=== PATIENT | female | born 1990 | race Caucasian/White ===

== ENCOUNTER 2016-09-12 10:46 | Emergency (ER) | payer SELFPAY ==
--- NOTE | 2016-09-12 12:08 | EDM.PDOC ---
ED HPI GENERAL MEDICAL PROBLEM - General Chief Complaint: Neck Problem Stated Complaint: [id number] SEVERE NECK PAIN PNEMONIA INCONTENCE SO Time Seen by Provider: 09/12/16 11:55 Source of Information: Reports: Patient History Limitations: Reports: No limitations - History of Present Illness INITIAL COMMENTS - FREE TEXT/NARRATIVE: This 26 yo female patient reports to the ED with numerous complaints. The patient reports: 1) right sided neck pain (started on 08/19/16), 2) a sore throat (also started on 08/19/16), 3) a cough (started about the same time), 4) generalized abdominal pain (history of endometriosis and colitis), and 5) loss of bowel control (acute on chronic). The patient was seen in the [facility] on 09/09/16 and was started on Augmentin (may contribute to the bowel incontinence). 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) Right Neck Pain Score (Numeric/FACES): 8 Right Lower Back Pain Score (Numeric/FACES): 8 Middle Abdomen Pain Score (Numeric/FACES): 8 - Related Data Allergies Allergy/AdvReac Type Severity Reaction Status Date / Time Cephalosporins Allergy Hives Verified 11/22/15 09:16 fentanyl Allergy Hives Verified 11/22/15 09:16 ketamine Allergy Hives Verified 11/22/15 09:16 propofol Allergy Hives Verified 11/22/15 09:16 antiinflammatories Allergy Cannot Uncoded 11/22/15 09:16 Remember Home Meds: Home Meds ALPRAZolam [Alprazolam] 1 mg PO ASDIRECTED PRN 08/02/15 [History] Amoxicillin/Potassium Clav [Augmentin 875-125 Tablet] 1 tab PO ASDIRECTED [History] Escitalopram [Lexapro] 20 mg PO DAILY 09/12/16 [History] Hydrocodone/Acetaminophen [Hydrocodon-Acetaminophen 5-325] 1 - 2 tab PO ASDIRECTED PRN 09/12/16 [History] Past Medical History - Past Health History Medical/Surgical History: Denies Medical/Surgical History HEENT History: Reports: None Cardiovascular History: Reports: None Respiratory History: Reports: None Gastrointestinal History: Reports: Other (see below) Other Gastrointestinal History: colitis 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 Musculoskeletal History: Reports: None Neurological History: Reports: None Psychiatric History: Reports: Anxiety, Depression, Other (see below) Other Psychiatric History: OCPD Endocrine/Metabolic History: Reports: None, Obesity/BMI 30+ Hematologic History: Reports: None Immunologic History: Reports: None Oncologic (Cancer) History: Reports: None Dermatologic History: Reports: None - Infectious Disease History Infectious Disease History: Reports: Chicken pox - Past Surgical History Head Surgeries/Procedures: Reports: None GI Surgical History: Reports: Colonoscopy Female Surgical History: Reports: Endometrial ablation Social & Family History - Family History Family Medical History: Noncontributory - Tobacco Use Smoking Status *Q: Current Every Day Smoker Years of Tobacco use: 7 Packs/Tins Daily: 1 Second Hand Smoke Exposure: No - Caffeine Use Caffeine Use: Reports: Coffee, Energy drinks, Soda - Recreational Drug Use Recreational Drug Use: No - Living Situation & Occupation Living situation: Reports: with family Occupation: employed ED ROS GENERAL - Review of Systems Review Of Systems: ROS reveals no pertinent complaints other than HPI. ED EXAM, GENERAL - Physical Exam Exam: See Below Exam Limited By: No limitations General Appearance: alert, WD/WN, moderate distress Eye Exam: bilateral eye: EOMI, normal inspection, PERRL Ears: normal external exam, normal canal, hearing grossly normal, normal TMs Nose: normal inspection Throat/Mouth: Normal inspection, Normal lips, Normal teeth, Normal gums, Normal oropharynx, Normal voice, No airway compromise Head: atraumatic, normocephalic Neck: tender lateral (right lateral posterior neck pain) Respiratory/Chest: no respiratory distress, lungs clear, normal breath sounds, no accessory muscle use, chest non-tender Cardiovascular: normal peripheral pulses, regular rate, rhythm, no edema, no gallop, no JVD, no murmur, no rub GI/Abdominal: normal bowel sounds, soft, no organomegaly, no distention, no abnormal bruit, no mass, tender (diffuse) (Female) Exam: Deferred Rectal (Female) Exam: Deferred Back Exam: normal inspection, decreased range of motion (mostly in the right posterior neck), muscle spasm, paraspinal tenderness Extremities: normal inspection, normal range of motion, non-tender, normal capillary refill, no pedal edema Neurological: alert, oriented, CN II-XII intact, normal cognition, normal gait, no motor/sensory deficits Psychiatric: normal affect, normal mood Skin Exam: Warm, Dry, Intact, Normal color, No rash Lymphatic: no adenopathy Course - Vital Signs Last Recorded V/S: Last Vital Signs Temp 36.2 C 09/12/16 13:59 Pulse 73 09/12/16 13:59 Resp 18 09/12/16 13:59 BP 108/68 09/12/16 13:59 Pulse Ox 98 09/12/16 13:59 - Orders/Labs/Meds Orders: Active Orders 24 hr Category Date Time Status CULTURE BLOOD [BC] Stat Lab 09/12/16 11:50 Received CULTURE BLOOD [] Stat Lab 09/12/16 12:03 Received CULTURE STREP A CONFIRMATION [] Stat Lab 09/12/16 11:26 Results STREP SCRN A RAPID W CULT CONF [] Stat Lab 09/12/16 11:26 Results Blood Culture x2 Reflex Set [OM.PC] Stat Oth 09/12/16 11:36 Ordered Labs: Laboratory Tests 09/12/16 09/12/16 09/12/16 Range/Units 11:10 11:10 11:50 WBC 9.1 (5.0-10.0) 10^3/uL RBC 5.12 (4.2-5.4) 10^6/uL Hgb 16.2 H (12.0-16.0) g/dL Hct 44.3 (37.0-47.0) % MCV 86.5 (80-100) fL MCH 31.6 (27.0-34.0) pg MCHC 36.6 H (33.0-35.0) g/dL Plt Count 344 (150-450) 10^3/uL Neut % (Auto) 64.0 (42.2-75.2) % Lymph % (Auto) 27.5 (20.5-50.1) % [place] % (Auto) 7.0 (2-8) % Eos % (Auto) 1.2 (1.0-3.0) % Baso % (Auto) 0.3 (0.0-1.0) % Sodium (138-146) mmol/L Potassium (3.5-4.9) mmol/L Chloride (98-109) mmol/L Carbon Dioxide (24-29) mmol/L Anion Gap BUN (8-26) mg/dL Creatinine (0.6-1.3) mg/dL Est Cr Clr Drug Dosing mL/min Estimated GFR (MDRD) BUN/Creatinine Ratio Glucose (70-105) mg/dL Lactic Acid (0.5-2.2) mmol/L Calcium Magnesium (1.8-2.5) mg/dL Total Bilirubin (0.2-1.0) mg/dL AST (10-42) IU/L ALT (10-60) IU/L Alkaline Phosphatase (42-121) IU/L Ammonia (11-35) umol/L Total Protein (6.7-8.2) g/dl Albumin (3.2-5.5) g/dl Globulin Albumin/Globulin Ratio Amylase (28-100) U/L Lipase (22-51) U/L HCG, Qual Urine Color Yellow (YELLOW) Urine Appearance Slightly cloudy (CLEAR) Urine pH 5.0 (5.0-9.0) Ur Specific [place] <= 1.005 (1.005-1.030) Urine Protein Negative (NEGATIVE) Urine Glucose (UA) Negative (NEGATIVE) Urine Ketones Negative (NEGATIVE) Urine Occult Blood Large H (NEGATIVE) Urine Nitrite Negative (NEGATIVE) Urine Bilirubin Negative (NEGATIVE) Urine Urobilinogen 0.2 (0.2-1.0) mg/dL Ur Leukocyte Esterase Trace H (NEGATIVE) Urine RBC 0-5 /HPF Urine WBC 0-5 (0-5/HPF) /HPF Ur Epithelial Cells Few /HPF Urinalysis Comment Urine Opiates Screen Negative (NEGATIVE) Ur Oxycodone Screen Negative (NEGATIVE) Urine Methadone Screen Negative (NEGATIVE) Ur Barbiturates Screen Negative (NEGATIVE) U Tricyclic Antidepress Negative (NEGATIVE) Ur Phencyclidine Scrn Negative (NEGATIVE) Ur Amphetamine Screen Negative (NEGATIVE) U Methamphetamines Scrn Negative (NEGATIVE) Urine MDMA Screen Negative (NEGATIVE) U Benzodiazepines Scrn Positive H (NEGATIVE) Urine Cocaine Screen Negative (NEGATIVE) U Marijuana (THC) Screen Negative (NEGATIVE) 09/12/16 09/12/16 09/12/16 Range/Units 11:50 11:50 11:50 WBC (5.0-10.0) 10^3/uL RBC (4.2-5.4) 10^6/uL Hgb (12.0-16.0) g/dL Hct (37.0-47.0) % MCV (80-100) fL MCH (27.0-34.0) pg MCHC (33.0-35.0) g/dL Plt Count (150-450) 10^3/uL Neut % (Auto) (42.2-75.2) % Lymph % (Auto) (20.5-50.1) % [place] % (Auto) (2-8) % Eos % (Auto) (1.0-3.0) % Baso % (Auto) (0.0-1.0) % Sodium 142 (138-146) mmol/L Potassium 4.1 (3.5-4.9) mmol/L Chloride 105 (98-109) mmol/L Carbon Dioxide 24 (24-29) mmol/L Anion Gap 17.1 BUN < 3 L (8-26) mg/dL Creatinine 0.5 L (0.6-1.3) mg/dL Est Cr Clr Drug Dosing 132.49 mL/min Estimated GFR (MDRD) > 60 BUN/Creatinine Ratio 6.00 Glucose 79 (70-105) mg/dL Lactic Acid 1.1 (0.5-2.2) mmol/L Calcium Magnesium 2.0 (1.8-2.5) mg/dL Total Bilirubin 0.4 (0.2-1.0) mg/dL AST 22 (10-42) IU/L ALT 29 (10-60) IU/L Alkaline Phosphatase 72 (42-121) IU/L Ammonia 35 (11-35) umol/L Total Protein 7.4 (6.7-8.2) g/dl Albumin 4.5 (3.2-5.5) g/dl Globulin 2.9 Albumin/Globulin Ratio 1.55 Amylase 39 (28-100) U/L Lipase 25 (22-51) U/L HCG, Qual Negative Urine Color (YELLOW) Urine Appearance (CLEAR) Urine pH (5.0-9.0) Ur Specific [place] (1.005-1.030) Urine Protein (NEGATIVE) Urine Glucose (UA) (NEGATIVE) Urine Ketones (NEGATIVE) Urine Occult Blood (NEGATIVE) Urine Nitrite (NEGATIVE) Urine Bilirubin (NEGATIVE) Urine Urobilinogen (0.2-1.0) mg/dL Ur Leukocyte Esterase (NEGATIVE) Urine RBC /HPF Urine WBC (0-5/HPF) /HPF Ur Epithelial Cells /HPF Urinalysis Comment Urine Opiates Screen (NEGATIVE) Ur Oxycodone Screen (NEGATIVE) Urine Methadone Screen (NEGATIVE) Ur Barbiturates Screen (NEGATIVE) U Tricyclic Antidepress (NEGATIVE) Ur Phencyclidine Scrn (NEGATIVE) Ur Amphetamine Screen (NEGATIVE) U Methamphetamines Scrn (NEGATIVE) Urine MDMA Screen (NEGATIVE) U Benzodiazepines Scrn (NEGATIVE) Urine Cocaine Screen (NEGATIVE) U Marijuana (THC) Screen (NEGATIVE) Meds: Medications Discontinued Medications Generic Name Dose Route Start Last Admin Trade Name Freq PRN Reason Stop Dose Admin Ketorolac Tromethamine 60 mg 09/12/16 12:55 09/12/16 13:01 Toradol IM 09/12/16 12:56 60 mg ONETIME ONE Administration Departure - Departure Time of Disposition: 14:37 Disposition: Home, Self-Care 01 Condition: fair Clinical Impression: Neck muscle strain Qualifiers: Encounter type: initial encounter Qualified Code(s): S16.1XXA - Strain of muscle, fascia and tendon at neck level, initial encounter Instructions: Cervical Sprain, [id number] Forms: ED Department Discharge Care Plan Goals: The patient was advised of the examination, lab and x-ray results during the visit. The patient was given a script for a Medrol Dose Pack to take as directed and Flexeril (10 mg) #20 to take 1 by mouth at bedtime as needed. If the patient has any additional symptoms or concerns, the patient should follow- up with her primary care facility or return to the emergency department. - My Orders Last 24 Hours: My Active Orders 09/12/16 11:26 CULTURE STREP A CONFIRMATION [RM] Stat STREP SCRN A RAPID W CULT CONF [RM] Stat 09/12/16 11:36 Blood Culture x2 Reflex Set [OM.PC] Stat 09/12/16 11:50 CULTURE BLOOD [BC] Stat 09/12/16 12:03 CULTURE BLOOD [BC] Stat - Assessment/Plan Last 24 Hours: My Active Orders 09/12/16 11:26 CULTURE STREP A CONFIRMATION [RM] Stat STREP SCRN A RAPID W CULT CONF [RM] Stat 09/12/16 11:36 Blood Culture x2 Reflex Set [OM.PC] Stat 09/12/16 11:50 CULTURE BLOOD [BC] Stat 09/12/16 12:03 CULTURE BLOOD [BC] Stat
[2016-09-12 12:10] LABS: SODIUM,NA 142 mmol/L (138-146)
[2016-09-12 12:11] LABS: CHLORIDE,CL 105 mmol/L (98-109)
[2016-09-12] MEDS ORDERED: Ketorolac 30 MG/ML SDV IM ONE (12:55)
--- NOTE | 2016-09-12 13:45 | CR ---
Clinical history: 26-year-old female neck pain and a cough. Interpretation: Negative exam. Normal cardiac silhouette without alveolar edema or dependent effusion. [place] thorax unremarkable. No foreign bodies. No lung mass, hilar lymphadenopathy or focal lobar pneumonia. No atelectasis/collapse. No pneumothorax.
--- NOTE | 2016-09-12 13:53 | CR ---
Clinical history: 26-year-old female neck pain. Interpretation: AP lateral cervical spine reveals some reversal of usual cervical lordosis but no sign of congenital abnormality, pathologic skeletal lesion, cervical fracture, spondylolisthesis or abnormal intervertebral disc space narrowing. No hypertrophic arthritic spurring. No cervical rib anomalies. Lung apices clear. CONCLUSION: Negative plain film exam cervical spine..
[2016-09-12 14:00] VITALS: BP 108/68
== END 2016-09-12 14:55 | disposition home or self-care (01) ==
LOC: DL.ED 10:46
DX: S16.1XXA Strain of muscle, fascia and tendon at neck level, initial encounter (principal); F41.9 Anxiety disorder, unspecified; F32.9 Major depressive disorder, single episode, unspecified; E66.9 Obesity, unspecified; F17.210 Nicotine dependence, cigarettes, uncomplicated; Z88.8 Allergy status to other drugs, medicaments and biological substances; Z79.899 Other long term (current) drug therapy
CPT/HCPCS: 36415; 71020; 72040; 80053; 80305; 81001; 82140; 82150; 83605; 83690; 83735; 84703; 85025; 87040; 87081; 87430; 96372; 99283; J1885

== ENCOUNTER 2016-09-25 17:58 | Emergency (ER) | payer SELFPAY ==
[2016-09-25 19:11] VITALS: BP 152/108
--- NOTE | 2016-09-25 20:15 | EDM.PDOC ---
ED HISTORY OF PRESENT ILLNESS - General Chief Complaint: Respiratory Problem Stated Complaint: REACTION TO MEDICINE/HARD TIME BREATHING Time Seen by Provider: 09/25/16 19:29 Source of Information: Reports: Patient History Limitations: Reports: No limitations - History of Present Illness INITIAL COMMENTS - FREE TEXT/NARRATIVE: Patient report long hx of anxiety with PTSD and panic disorder. Had been stable on xanax and lexapro. New psychiatrist started her on Prazosin for nightmare. First dose today and one hour after had pounding in chest that led to "5 hour panic attack. Had called pharmacy and advised to be evaluated as palpations can be side effect of medication. Patient notes is calmer now than prior. Headache from stress wihich is usual with panic attacks. Hx colitis, now flared and having diarrhea. . 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 - Related Data Allergies/ADRs: Allergies Allergy/AdvReac Type Severity Reaction Status Date / Time Cephalosporins Allergy Hives Verified 09/25/16 19:11 fentanyl Allergy Hives Verified 09/25/16 19:11 ketamine Allergy Hives Verified 09/25/16 19:11 propofol Allergy Hives Verified 09/25/16 19:11 antiinflammatories Allergy Cannot Uncoded 09/25/16 19:11 Remember Home Meds: Home Meds ALPRAZolam [Alprazolam] 1 mg PO ASDIRECTED PRN 08/02/15 [History] Amoxicillin/Potassium Clav [Augmentin 875-125 Tablet] 1 tab PO ASDIRECTED [History] Escitalopram [Lexapro] 20 mg PO DAILY 09/12/16 [History] Hydrocodone/Acetaminophen [Hydrocodon-Acetaminophen 5-325] 1 - 2 tab PO ASDIRECTED PRN 09/12/16 [History] Past Medical History - Past Health History Medical/Surgical History: Denies Medical/Surgical History HEENT History: Reports: None Cardiovascular History: Reports: None Respiratory History: Reports: None Gastrointestinal History: Reports: Other (see below) Other Gastrointestinal History: colitis Genitourinary History: Reports: None 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 Musculoskeletal History: Reports: None Neurological History: Reports: None Psychiatric History: Reports: Anxiety, Depression, PTSD, Other (see below) Other Psychiatric History: OCPD Endocrine/Metabolic History: Reports: None, Obesity/BMI 30+ Hematologic History: Reports: None Immunologic History: Reports: None Oncologic (Cancer) History: Reports: None Dermatologic History: Reports: None - Infectious Disease History Infectious Disease History: Reports: Chicken pox - Past Surgical History Head Surgeries/Procedures: Reports: None GI Surgical History: Reports: Colonoscopy Female Surgical History: Reports: Endometrial ablation Social & Family History - Family History Family Medical History: Noncontributory - Tobacco Use Smoking Status *Q: Current Every Day Smoker Years of Tobacco use: 8 Packs/Tins Daily: 20 Second Hand Smoke Exposure: No - Caffeine Use Caffeine Use: Reports: Soda, Tea - Recreational Drug Use Recreational Drug Use: Yes Recreational Drug Type: Reports: Marijuana/Hashish Recreational Drug Use Frequency: Rarely - Living Situation & Occupation Living situation: Reports: with family Occupation: employed ED ROS GENERAL - Review of Systems Review Of Systems: See Below HEENT: Reports: No symptoms Cardiovascular: Reports: Palpitations GI/Abdominal: Reports: Abdominal pain (cramping), Diarrhea : Reports: no symptoms Musculoskeletal: Reports: no symptoms Skin: Reports: no symptoms Neurological: Reports: No Symptoms Psychiatric: Reports: Anxiety ED EXAM, GENERAL - Physical Exam Exam: See Below Exam Limited By: No limitations General Appearance: alert, no apparent distress Eye Exam: bilateral eye: EOMI Ears: normal external exam Nose: normal inspection Throat/Mouth: Normal inspection Head: atraumatic, normocephalic Neck: normal inspection, supple, non-tender Respiratory/Chest: no respiratory distress, lungs clear, normal breath sounds Cardiovascular: normal peripheral pulses, regular rate, rhythm, other (EKG NSR) GI/Abdominal: soft. No: normal bowel sounds (hyperactive) Extremities: normal inspection, normal range of motion Neurological: alert, oriented, normal cognition Psychiatric: normal affect, anxious Skin Exam: Warm, Dry, Intact, Normal color Course - Vital Signs Last Recorded V/S: Last Vital Signs Temp 98.8 F 09/25/16 18:48 Pulse 93 09/25/16 18:48 Resp 18 09/25/16 18:48 BP 152/108 H 09/25/16 18:48 Pulse Ox 100 09/25/16 18:48 - Orders/Labs/Meds Meds: Medications Discontinued Medications Generic Name Dose Route Start Last Admin Trade Name Freq PRN Reason Stop Dose Admin Alprazolam Confirm 09/25/16 20:19 Xanax Administered 09/25/16 20:20 Dose 1 mg .ROUTE .STK-MED ONE Alprazolam Confirm 09/25/16 20:25 Xanax Administered 09/25/16 20:26 Dose 1 mg .ROUTE .STK-MED ONE - Re-Assessments/Exams Free Text/Narrative Re-Assessment/Exam: 09/26/16 03:48 Appears to be valid historian. Less anxious at time of exam than arrival in ED. Discussed with patient need to follow with PCP or psychiatrist for ongoing medication management. Recommend not taking Prazosin until further evaluation by mental health. Patient in agreement. Departure - Departure Time of Disposition: 20:11 Disposition: Home, Self-Care 01 Condition: good Clinical Impression: Adverse effects of medication, Panic disorder Instructions: Panic Attacks, [id number] Referrals: Chani Vora MD [Primary Care Provider] - Forms: ED Department Discharge Additional Instructions: xanax 1 mg one twice daily as needed #6 Hold Prazosin until follow up with paychiatry or primary care rest increase fluids
[2016-09-25] MEDS ORDERED: ALPRAZolam 0.5 MG Tab ONE ×2 (20:19→20:25)
[2016-09-25] MEDS ORDERED: ALPRAZolam 0.5 MG Tab PO ONE (20:19)
== END 2016-09-25 20:33 | disposition home or self-care (01) ==
LOC: DL.ED 17:58
DX: F41.0 Panic disorder [episodic paroxysmal anxiety] (principal); T44.8X5A Adverse effect of centrally-acting and adrenergic-neuron-blocking agents, initial encounter; E66.9 Obesity, unspecified; F32.9 Major depressive disorder, single episode, unspecified; F41.9 Anxiety disorder, unspecified; F17.210 Nicotine dependence, cigarettes, uncomplicated; Z79.899 Other long term (current) drug therapy; Z88.8 Allergy status to other drugs, medicaments and biological substances; Z88.1 Allergy status to other antibiotic agents
CPT/HCPCS: 99283; A9270-GY

== ENCOUNTER 2016-10-31 09:32 | Emergency (ER) | payer BC ==
--- NOTE | 2016-10-31 09:34 | EDM.PDOC ---
ED HPI GENERAL MEDICAL PROBLEM - General Chief Complaint: ENT Problem Stated Complaint: SICK SINCE 08/18 Time Seen by Provider: 10/31/16 09:34 Source of Information: Reports: Patient, Old Records, RN History Limitations: Reports: No Limitations - History of Present Illness INITIAL COMMENTS - FREE TEXT/NARRATIVE: C/O congestion, sinus pain and drainage since August 18, 2016. Pt has been to clinic, treated with antibiotics (Augmentin 875mg BID x10 days for 2 courses) and not improved. She went to the dentist and they pulled 3 teeth on 10/28/16. She was given T-3 for pain, but codeine makes her vomit. Now she has had diarrhea x3 days as well, and has Hx of colitis. Pt reports productive cough with brown to near-black sputum. Admits to on/off subjective fever sensation, but hasn't measured her temperature. Admits to B/L ear pain and pressure, and sore throat. She has taken Zyrtec, Benadryl, and Claritin without any improvement. She went to clinic for a f/u appt. today, but had to insole tack puller hand several times to vomit and was 15mins. late and the clinic wouldn't see her. Onset Date: 08/18/16 Duration: Constant Location: Reports: Head, Face, Chest Quality: Reports: Ache, Pressure Severity: Severe Improves with: Reports: None Worsens with: Reports: None Head Pain Score (Numeric/FACES): 10 - Related Data Allergies Allergy/AdvReac Type Severity Reaction Status Date / Time cefaclor [[facility] Allergy Rash Verified 10/31/16 10:11 Cephalosporins Allergy Hives Verified 09/25/16 19:11 fentanyl Allergy Hives Verified 09/25/16 19:11 ketamine Allergy Hives Verified 09/25/16 19:11 propofol Allergy Hives Verified 09/25/16 19:11 antiinflammatories Allergy Cannot Uncoded 09/25/16 19:11 Remember Home Meds: Home Meds Escitalopram [Lexapro] 20 mg PO DAILY 09/12/16 [History] Past Medical History - Past Health History Medical/Surgical History: Denies Medical/Surgical History HEENT History: Reports: None Cardiovascular History: Reports: None Respiratory History: Reports: None Gastrointestinal History: Reports: Other (See Below) Other Gastrointestinal History: colitis Genitourinary History: Reports: None 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: Endometriosis Musculoskeletal History: Reports: None Neurological History: Reports: None Psychiatric History: Reports: Anxiety, Depression, PTSD, Other (See Below) Other Psychiatric History: [facility] Endocrine/Metabolic History: Reports: None, Obesity/BMI 30+ Hematologic History: Reports: None Immunologic History: Reports: None Oncologic (Cancer) History: Reports: None Dermatologic History: Reports: None - Infectious Disease History Infectious Disease History: Reports: Chicken Pox - Past Surgical History Female Surgical History: Reports: Endometrial Ablation Social & Family History - Family History Family Medical History: Noncontributory - Tobacco Use Smoking Status *Q: Current Every Day Smoker Tobacco Use Within Last Twelve Months: Cigarettes Years of Tobacco use: 8 Packs/Tins Daily: 20 Second Hand Smoke Exposure: No - Caffeine Use Caffeine Use: Reports: Soda, Tea - Recreational Drug Use Recreational Drug Use: Yes Recreational Drug Type: Reports: Marijuana/Hashish Recreational Drug Use Frequency: Rarely - Living Situation & Occupation Living situation: Reports: with Family Occupation: Employed ED ROS GENERAL - Review of Systems Review Of Systems: ROS reveals no pertinent complaints other than HPI. ED EXAM, GENERAL - Physical Exam Exam: See Below Exam Limited By: No Limitations General Appearance: Alert, WD/WN, Anxious, Mild Distress (tearful) Eye Exam: Bilateral Eye: EOMI, Normal Inspection, PERRL Ears: Normal External Exam, Normal Canal, Hearing Grossly Normal, Normal TMs Nose: No Blood, Clear Rhinorrhea (pt crying/tearful), Other (inflammed, swollen nasal mucosa) Throat/Mouth: Normal Lips, Normal Teeth, Normal Gums, Normal Voice, No Airway Compromise, Other (postnasal drip, mild pharyngeal erythema) Head: Atraumatic, Normocephalic Neck: Normal Inspection, Supple, Non-Tender, Full Range of Motion, Lymphadenopathy (L), Lymphadenopathy (R) Respiratory/Chest: No Respiratory Distress, No Accessory Muscle Use, Chest Non- Tender, Crackles. No: Rales, Rhonchi, Wheezing Cardiovascular: Normal Peripheral Pulses, Regular Rate, Rhythm, No Edema, No Gallop, No JVD, No Murmur, No Rub GI/Abdominal: Normal Bowel Sounds, Soft, Non-Tender, No Organomegaly, No Distention, No Abnormal Bruit Back Exam: Normal Inspection Extremities: Normal Inspection Neurological: Alert, Oriented, CN II-XII Intact, Normal Cognition, Normal Gait, No Motor/Sensory Deficits Psychiatric: Anxious, Tearful Skin Exam: Warm, Dry, Intact, Normal Color, No Rash Course - Vital Signs Last Recorded V/S: Last Vital Signs Temp 36.1 C 10/31/16 09:59 Pulse 98 10/31/16 09:59 Resp 20 10/31/16 09:59 BP 164/109 H 10/31/16 09:59 Pulse Ox 100 10/31/16 09:59 - Orders/Labs/Meds Orders: Active Orders 24 hr Category Date Time Status Chest 2V [CR] Stat Exams 10/31/16 09:47 Taken Sinus Comp Min 3V [CR] Urgent Exams 10/31/16 09:48 Taken CULTURE SPUTUM + SMEAR [] Stat Lab 10/31/16 09:54 Uncollected CULTURE STREP A CONFIRMATION [] Stat Lab 10/31/16 09:55 Results FUNGUS CULTURE [MREF] Stat Lab 10/31/16 09:54 Uncollected STREP SCRN A RAPID W CULT CONF [] Stat Lab 10/31/16 09:55 Results Labs: Laboratory Tests 10/31/16 Range/Units 09:54 WBC 8.3 (5.0-10.0) 10^3/uL RBC 4.95 (4.2-5.4) 10^6/uL Hgb 15.7 (12.0-16.0) g/dL Hct 43.6 (37.0-47.0) % MCV 88.1 (80-100) fL MCH 31.7 (27.0-34.0) pg MCHC 36.0 H (33.0-35.0) g/dL Plt Count 315 (150-450) 10^3/uL Neut % (Auto) 58.3 (42.2-75.2) % Lymph % (Auto) 30.3 (20.5-50.1) % [place] % (Auto) 8.8 H (2-8) % Eos % (Auto) 2.1 (1.0-3.0) % Baso % (Auto) 0.5 (0.0-1.0) % - Radiology Interpretation Free Text/Narrative:: CXR: No acute process per Rad. report. Sinus Xray: no visible sinusitis per Rad. report. Departure - Departure Time of Disposition: 10:38 Disposition: Home, Self-Care 01 Condition: good Clinical Impression: Postnasal drip Allergic rhinosinusitis Qualifiers: Chronicity: chronic Allergic rhinitis trigger: unspecified Allergic rhinitis seasonality: unspecified seasonality Qualified Code(s): J30.9 - Allergic rhinitis, unspecified Seasonal allergies Qualifiers: Chronicity: unspecified Allergic rhinitis trigger: unspecified Qualified Code(s ): J30.2 - Other seasonal allergic rhinitis - Discharge Information Instructions: Allergies, [id number], Nasal Allergies, [id number] Forms: ED Department Discharge Additional Instructions: Rx: Prednisone 20mg Rx: Claritin D 24HR Rx: Atrovent Nasal [place] 0.06% Follow up in clinic for recheck in 1 to 2 weeks. - My Orders Last 24 Hours: My Active Orders 10/31/16 09:47 Chest 2V [CR] Stat 10/31/16 09:48 Sinus Comp Min 3V [CR] Urgent 10/31/16 09:54 CULTURE SPUTUM + SMEAR [RM] Stat FUNGUS CULTURE [MREF] Stat 10/31/16 09:55 CULTURE STREP A CONFIRMATION [RM] Stat STREP SCRN A RAPID W CULT CONF [RM] Stat - Assessment/Plan Last 24 Hours: My Active Orders 10/31/16 09:47 Chest 2V [CR] Stat 10/31/16 09:48 Sinus Comp Min 3V [CR] Urgent 10/31/16 09:54 CULTURE SPUTUM + SMEAR [RM] Stat FUNGUS CULTURE [MREF] Stat 10/31/16 09:55 CULTURE STREP A CONFIRMATION [RM] Stat STREP SCRN A RAPID W CULT CONF [RM] Stat
[2016-10-31 10:10] VITALS: BP 164/109
--- NOTE | 2016-10-31 11:06 | CR ---
Clinical history: 26-year-old female with "productive" cough. Interpretation: No acute new cardiopulmonary abnormality identified in the interval since August 25 017 exam. Subtle peribronchial "cuffing" suggesting some reactive airway disease but no appreciable air trappi ng and no focal lobar pneumonia. No atelectasis/collapse. No new lung mass or hilar/mediastinal lymp hadenopathy. Normal cardiac silhouette without alveolar edema or dependent effusion. No pneumothorax.
--- NOTE | 2016-10-31 11:10 | CR ---
Clinical history: 26-year-old female with "productive" cough and sinus pain/drainage (4 months). Interpretation: Symmetric clear pneumatization of the paranasal sinuses without sign of mucoperioste al inflammatory thickening, pathologic air-fluid levels or antral mass lesion. No foreign bodies or bony wall destruction appreciated in this nearly edentulous patient. Nasal sept um in the midline. CONCLUSION: Negative exam.
== END 2016-10-31 11:00 | disposition home or self-care (01) ==
LOC: DL.ED 09:32
DX: J30.2 Other seasonal allergic rhinitis (principal); F32.9 Major depressive disorder, single episode, unspecified; F41.9 Anxiety disorder, unspecified; R09.82 Postnasal drip; F17.210 Nicotine dependence, cigarettes, uncomplicated; F43.10 Post-traumatic stress disorder, unspecified; E66.9 Obesity, unspecified; Z88.1 Allergy status to other antibiotic agents; Z88.8 Allergy status to other drugs, medicaments and biological substances; Z79.899 Other long term (current) drug therapy
CPT/HCPCS: 36415; 71020; 85025; 87070; 87077; 87081; 87102; 87186; 87205; 87430; 99283; 99284

== ENCOUNTER 2017-04-19 23:49 | Emergency (ER) | payer BC ==
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
[2017-04-20] MEDS ORDERED: Acetaminophen/HYDROcodone 325-10 MG Tab PO ONE (01:46)
[2017-04-20 01:54] VITALS: BP 127/109
== END 2017-04-20 02:21 | disposition home or self-care (01) ==
LOC: DL.ED 23:49
DX: S00.83XA Contusion of other part of head, initial encounter (principal); S20.212A Contusion of left front wall of thorax, initial encounter; S00.03XA Contusion of scalp, initial encounter; S10.93XA Contusion of unspecified part of neck, initial encounter; F17.210 Nicotine dependence, cigarettes, uncomplicated; Z88.1 Allergy status to other antibiotic agents; Z88.8 Allergy status to other drugs, medicaments and biological substances; Z88.6 Allergy status to analgesic agent; Z79.899 Other long term (current) drug therapy; Y04.0XXA Assault by unarmed brawl or fight, initial encounter
CPT/HCPCS: 70450; 70486; 71250; 72125; 99285; A9270